=== PATIENT | male | born 1970 | race African-American/Black ===

== ENCOUNTER 2017-12-14 01:24 | Emergency (ER) | payer OTHER ==
[~2017-12-14] VITALS: Ht 188 cm; Wt 104.5 kg
[2017-12-14 02:59] LABS: HEMATOCRIT 37.2 % (38.0-50.0); HEMOGLOBIN 13.2 G/DL (12.5-16.6); MCH 31.4 PG (29.0-34.0); MCHC 35.5 G/DL (30.0-36.0); MCV 88.4 FL (86-99); PLATELET COUNT 255 K/uL (156-360); RBC DIS.WIDTH-CV 13.2 % (11.8-14.6); RBC DIS.WIDTH-SD 42.8 % (39-53); RED BLOOD COUNT 4.21 M/uL (4.00-5.50); WHITE BLOOD COUNT 6.5 K/uL (4.1-10.2)
[2017-12-14 03:07] LABS: CHLORIDE 108 mEq/L (99-109); POTASSIUM 3.9 mEq/L (3.7-5.4); SODIUM 141 mEq/L (136-147)
[2017-12-14 03:09] LABS: GLUCOSE 110 mg/dL (70-99)
[2017-12-14 03:13] LABS: GFR ESTIMATE (CALCULATED) > 59 mL/min/ (58.99-99999)
[2017-12-14 03:14] LABS: UREA NITROGEN (BUN) 9 mg/dL (9-23)
[2017-12-14 03:21] LABS: TROP-I INTERPRETATION NEGATIVE; TROPONIN-I 0.01 ng/mL (0.0-0.30)
[2017-12-14] MEDS ORDERED: ANTIVERT25 MG PO (09:35)
[2017-12-14 09:57] VITALS: BP 132/76
== END 2017-12-14 09:57 | disposition home or self-care (01) ==
LOC: EME 01:24
PROVIDERS: Emergency Medicine
DX: R42 Dizziness and giddiness (principal); I10 Essential (primary) hypertension; R00.1 Bradycardia, unspecified
CPT/HCPCS: 70450; 70551; 80048; 84484; 85027; 93005; 99281; 99285; J2405; J7030